=== PATIENT | male | born 1980 | race Caucasian/White ===

== ENCOUNTER 2017-12-14 10:13 | Day surgery (SDC) | payer OTHER, SELFPAY ==
[2017-12-10 08:16] VITALS: BMI 35.6
[2017-12-14] VITALS (15 sets, daily range): BP systolic 105–147; BP diastolic 61–91; PULSE 90–99; RESP 14–18; TEMP 36.6–37.6; O2SAT 87–96; BMI 35.6
--- NOTE | 2017-12-14 | DI.RAD.S_ITS ---
PROCEDURE: XR ANKLE RT MIN 3V INDICATIONS: ORIF RIGHT ANKLE TECHNIQUE: 3 views of the ankle were acquired. COMPARISON: None. FINDINGS: 3 spot fluoroscopic intraoperative images demonstrating postsurgical changes related to placement fixation of the distal fibula, screw fixation of the medial and posterior malleoli as well as tightrope procedure. Dictated by: Jimmy Landeros M.D. on 12/14/2017 at 16:49 Approved by: Jimmy Landeros M.D. on 12/14/2017 at 16:50
[2017-12-14] MEDS: LACTATED RINGERS 1,000 ML 42 ML IV ×2 (10:59→13:18)
--- NOTE | 2017-12-14 11:02 | SUR.PREOP ---
Due to splint on operative leg did use chlorhexidine on operative site.
--- NOTE | 2017-12-14 11:09 | PM.PREOP ---
Pre-operative Note Interval Note Pre-op Check: Yes History & Physical Reviewed by Physician and Yes Exam Performed Changes: No
[2017-12-14] MEDS: MIDAZOLAM 2 MG/2 ML VIAL IV (11:10)
[2017-12-14] MEDS: fentaNYL 100 MCG/2 ML INJ IV (11:15)
[2017-12-14] MEDS: CEFAZOLIN 2 GM/100 ML FROZ.PIGGY IV ×2 (11:29→15:33)
--- NOTE | 2017-12-14 11:31 | SUR.PREOP ---
Block start time [1119] . Monitoring initiated and maintained throughout procedure. Oxygen and medications given per anesthesiologist instructions. Patient remained stable throughout procedure, no adverse reactions noted. Block end time [].1123
[2017-12-14] MEDS: CEFAZOLIN 1 GM VIAL IV ×2 (11:45→15:34)
[2017-12-14] MEDS: BUPIVACAINE 0.5% (PF) VIAL 30 ML INJ (12:22)
--- NOTE | 2017-12-14 12:29 | SUR.OPER ---
Lateral on padded OR bed with abby bag support shoulder to hip, head on pillow, gel axillary roll in place, bottom leg bent with gel pad under knee to foot, gel pad to edge of wei bag, upper leg straight and supported with pillows. Upper arm supported by pillows and secured over bottom arm to padded arm board. Safety belt at hip, tape over blanket lower leg.
--- NOTE | 2017-12-14 14:19 | SUR.OPER ---
At 1410, surgeon requested repositioning: wei bag released, patient repositioned to supine on padded OR bed, head on pillow, arms secured on padded arm boards at <90 degrees abduction, legs uncrossed, safety belt at hip.
[2017-12-14] MEDS: THROMBIN (BOVINE) 5,000 UNIT VIAL 5000 UNIT TOP (15:10)
--- NOTE | 2017-12-14 16:10 | PM.OP.1 ---
Operative Date/Time/Diagnoses Date of procedure: 12/14/17 Time of procedure: 11:35 Pre-op diagnosis: Right trimalleolar ankle fracture ICD 10 S82.851A Post-op diagnosis: same Procedure & Clinicians Procedure: Open reduction internal fixation right trimalleolar fracture with fixation of posterior lip. CPT code 27312 Open reduction internal fixation syndesmosis, right Same procedure as scheduled: Yes Indications: The patient is a 37-year-old otherwise healthy male that sustained a closed right trimalleolar keagan ankle fracture on 12/05/2017 when he fell on stadium stairs at the [facility] football game. He was seen evaluated and splinted in [facility] then travel home for definitive care. He has an unstable displaced right trimalleolar ankle fracture has been indicated for surgical reduction and stabilization to stabilize the joint and limit the development of posttraumatic arthritis or malunion. The patient was counseled regarding the rationale and the risks of surgery. The risks included but are not limited to infection, bleeding, damage to nerves and blood vessels, or tendons, wound dehiscence, malunion, nonunion, persistence of pain, DVT, PE, inability to return to the desired level of function, hardware breakage or prominence, generalized dissatisfaction with the surgical procedure, need for additional procedures, cardiopulmonary complications and . Patient expressed understanding of all the risks and elected to proceed. Patient understands that recovery is variable and may require up to 1 year. The patient also understands that is critical to strictly elevate the operative leg for the 1st 2 weeks after surgery to control swelling and pain. Patient was counseled that no weight will be allowed on the operative extremity for approximately 6 weeks or until the patient is instructed to initiate weight-bearing. Patient expressed full understanding of all these issues and expressed desire to proceed with surgery. Informed consent was obtained and signed in the office. The patient was additionally counseled on cessation of all nicotine products to promote fracture healing and wound healing. DVT prophylaxis with 6 weeks of aspirin will be starting postop day 1 was discussed, the patient has no family or personal history of blood clots or coagulopathies. Surgeon: Lou Mcgregor Click Yes if Unassisted: Yes Anesthesia Type: General, Peripheral nerve block and Local Operative Notes Findings: An unstable distal lateral malleolus fracture was encountered. This had both a distal anterior to proximal posterior oblique component as well as a anterior small butterfly fragment encompassing the origin of a AITFL. Lateral malleolus fracture was stabilized with a 2.7 lag screw anterior to posterior as well as a separate 2.7 mm lag screw with a washer distally in the small anterior pravin fragment. The reduction was neutralized with a 6 hole Arthrex 1/3 tubular locking plate with cortical screws proximal and 1 locking screw distally to avoid prominence. The posterior malleolus fracture was exposed stabilized with a 4.0 mm cannulated lag screw and washer 45mm Medial malleolus fracture will was exposed and reduced with 2 x 4.0 mm cannulated screws 45mm Syndesmosis was stressed under fluoroscopic guidance with the cotton hook test additionally visual inspection through the incision found super physiologic motion this was formally open reduced and pinned with a 2,0mm K-wire and some pressure and then stabilized with an Arthrex suture button--tight rope device. Repeat stress exam following stabilization demonstrated a stable syndesmosis. Closure Type: primary Specimen(s): none sent Implants & Drains: Arthrex 6 hole 1/3 tubular locking plate and cortical screws, 1 distal locking screw Arthrex tight rope 2 (4.0mm) cannulated screws the medial malleolus 1( 4.0mm ) cannulated screw with washer, posterior malleolus 2x 2.7mm synthes mini frag cortical screws + (1) washer Applied: other (Splint) Estimated Blood Loss (mL): 100 Blood products transfused: none Tourniquet time (min): 120 Procedure in detail: The preoperative holding area, the appropriate limb and side of surgery were marked. The patient was then brought to the operating room and placed on the operating table and given anesthetic. Following successful level of anesthesia patient was appropriately padded, position and secured to the table. An SCD was placed on the contralateral extremity. For this procedure the patient was placed initially lateral on the beanbag with a axillary bump. The down leg was well padded with care around the peroneal nerve. A well-padded thigh tourniquet was placed on the surgical leg. Surgical leg was then prepped and draped in the standard sterile fashion after a 3 step prepped with alcohol, chlorhexidine sponge and standard scrub. Formal time-out procedure was completed confirming the patient, side and site of surgery and administration of appropriate preoperative antibiotics which due to the patient's weight at 122 kg with 3 g of Ancef. All were in agreement and appropriate implants were in the room and available. An Esmarch bandage was utilized to exsanguinate the limb and the tourniquet was placed on the thigh to 300 mm of mercury. A posterior lateral incision was made posterior to the fibula over the peroneal tendons. This was carried through the skin and subcutaneous tissue. Peroneal sheath was opened and the tendons were retracted posteriorly. The distal fibula fracture was exposed and cleaned of debris. Fracture was noted to have 2 separate parts with a standard external rotation distal anterior to proximal posterior fracture line as well as a separate anterior butterfly fragment at the area of the anterior syndesmosis. The distal fibula fracture was preliminarily stabilized with K-wires. Next the peroneal tendons were retracted anteriorly and the deep fascia was entered. The FHL was elevated off of the posterior fibula and retracted medially. A Hohmann was placed medially to protect the medial neurovascular bundle. The posterior malleolus fragment was identified and reduced. This was pinned and fluoroscopy was obtained. For the 0.0 mm cannulated lag screw with a washer was utilized to reduce and stablize posterior malleolus fragment from posterior to anterior. This was initially a 50 mm screw however on repeat imaging this appeared to be a little prominent and the left lateral anteriorly therefore this was exchanged for a 45mm screw. Care was taken throughout the posterior dissection to preserve the PITFL attachment on the posterior malleolus fragment. Attention was then returned to the distal fibula and the peroneal tendons were once again retracted posteriorly. The major fragments of the distal fibula fracture were again reduced and a major there brought out to length. This was stabilized with an anterior to posterior 2.7 mm lag screw utilizing the Synthes mini frag set. Previous and temporizing and K-wires were removed and the lag screw was tightened down all the way. Next a neutralization 6 hole 1/3 tubular plate from the Arthrex set was fashioned to the posterior lateral fibula with care to stop short of the distal groove for the peroneal tendons. This was secured to the bone using a BB tacks and this then nonlocking 3.5 screws proximally. 1 locking 3.5 screw was used distally to avoid hardware prominence. The anterior butterfly avulsion (wagstaffe) fragment representing the attachment of the ATFL on the fibula was separately stabilized using a 2.7 mm screw with a washer in a lag fashion. The screw was directed through the distal part of the fragment as this was the least comminuted area. Was attempted to get several passes with a FiberWire around the fragment as well but the mini frag screw and washer provided the most secure fixation. Next the beanbag was let down and the patient was carefully externally rotated to expose the medial malleolus. Standard medial incision was made over the medial malleolus with care taken to avoid the saphenous vein and nerve. The transverse fracture was exposed. The joint was visualized there were no obvious her cartilage lesions. The joint was thoroughly irrigated and the medial malleolus fracture was reduced and provisionally pinned. Next 2 4.0 mm cannulated lag screws were utilized to transfix the medial malleolus fracture. One was placed slightly more anterior than typical in order to be more perpendicular to this particular fracture pattern. This fixation was complete attention was turned to the syndesmosis. The ankle was stressed under fluoroscopy in external rotation and with direct fibular manipulation using a bone clamp and hook. The syndesmosis was noted to have supra-physiologic motion and widening in the anterior to posterior direction on the stress examination. Given this and energy required the fracture, both disrupting the anterior and posterior syndesmosis with a wagstaffe and posterior malleolus fracture- volkmann fragment, additional transsyndesmotic fixation was felt necessary. The syndesmosis was reduced with thumb pressure and a 2.0 mm K-wire was placed across the syndesmosis next the drill for the Arthrex tight rope was positioned just anterior to the plate and all 4 cortices were drilled under fluoroscopic guidance. The suture button device was passed and visualized medial directly on the periosteum. The suture button device was tightened, the transfixing K-wire was moved and final tightening was obtained. Live fluoroscopic and visual examination of the syndesmosis demonstrated stable alignment. Two half hitches were placed and the tails were cut. Stability was confirmed under fluoroscopic guidance and final intraoperative fluoroscopic imaging was obtained including AP, mortise, lateral images. I was quite satisfied with result clinically and radiographically. The tourniquet was released and the wounds were irrigated. We did briefly put the tourniquet back up for 7 min while we got some Gel-Foam and thrombin for the posterior-lateral incision and once this was placed the tourniquet was released and hemostasis achieved. The deep tissue was closed with 2 O Vicryl. Subcutaneous tissue was closed with 4 0 Monocryl and the skin with 3 O nylon sutures in a vertical mattress fashion to daxa the skin edges. Additional simple sutures were also used. 10 cc of 0.5% bupivacaine was placed along the saphenous nerve distribution to supplement the sciatic nerve block was done preoperatively by the anesthesia team. All counts were correct. A sterile bulky Muñoz type dressing and U splint was applied. The patient was woken from anesthesia and taken to the recovery room in good condition. Complications: none Condition: stable Disposition: PACU Plan for aftercare: Patient will be nonweightbearing on the surgical leg. They will start taking 325 mg of aspirin on postop day 1 for DVT prophylaxis x6 weeks. Patient will follow up in 1 week for wound check and then changed to a cast. They will then follow up in 2 weeks later for cast and suture removal. At this time they will go into a boot start early range of motion but will continue to be nonweightbearing. The patient will then follow up in 4 weeks more for x-ray. Will start weight-bearing progressively between 6 and 10 weeks.
[2017-12-14] MEDS: OXYCODONE/ACETAMINOPHEN 5/325 TABLET 1 TAB PO ×2 (16:40→17:08)
--- NOTE | 2017-12-14 16:45 | P.OP_ITS ---
Operative Date/Time/Diagnoses Date of procedure: 12/14/17 Time of procedure: 11:35 Pre-op diagnosis: Right trimalleolar ankle fracture ICD 10 S82.851A Post-op diagnosis: same Procedure & Clinicians Procedure: Open reduction internal fixation right trimalleolar fracture with fixation of posterior lip. CPT code 31402 Open reduction internal fixation syndesmosis, right Same procedure as scheduled: Yes Indications: The patient is a 37-year-old otherwise healthy male that sustained a closed right trimalleolar keagan ankle fracture on 12/05/2017 when he fell on stadium stairs at the [employer] football game. He was seen evaluated and splinted in [facility] then travel home for definitive care. He has an unstable displaced right trimalleolar ankle fracture has been indicated for surgical reduction and stabilization to stabilize the joint and limit the development of posttraumatic arthritis or malunion. The patient was counseled regarding the rationale and the risks of surgery. The risks included but are not limited to infection, bleeding, damage to nerves and blood vessels, or tendons, wound dehiscence, malunion, nonunion, persistence of pain, DVT, PE, inability to return to the desired level of function, hardware breakage or prominence, generalized dissatisfaction with the surgical procedure, need for additional procedures, cardiopulmonary complications and . Patient expressed understanding of all the risks and elected to proceed. Patient understands that recovery is variable and may require up to 1 year. The patient also understands that is critical to strictly elevate the operative leg for the 1st 2 weeks after surgery to control swelling and pain. Patient was counseled that no weight will be allowed on the operative extremity for approximately 6 weeks or until the patient is instructed to initiate weight- bearing. Patient expressed full understanding of all these issues and expressed desire to proceed with surgery. Informed consent was obtained and signed in the office. The patient was additionally counseled on cessation of all nicotine products to promote fracture healing and wound healing. DVT prophylaxis with 6 weeks of aspirin will be starting postop day 1 was discussed , the patient has no family or personal history of blood clots or coagulopathies. Surgeon: Lou Mcgregor Click Yes if Unassisted: Yes Anesthesia Type: General, Peripheral nerve block and Local Operative Notes Findings: An unstable distal lateral malleolus fracture was encountered. This had both a distal anterior to proximal posterior oblique component as well as a anterior small butterfly fragment encompassing the origin of a AITFL. Lateral malleolus fracture was stabilized with a 2.7 lag screw anterior to posterior as well as a separate 2.7 mm lag screw with a washer distally in the small anterior pravin fragment. The reduction was neutralized with a 6 hole Arthrex 1/3 tubular locking plate with cortical screws proximal and 1 locking screw distally to avoid prominence. The posterior malleolus fracture was exposed stabilized with a 4.0 mm cannulated lag screw and washer 45mm Medial malleolus fracture will was exposed and reduced with 2 x 4.0 mm cannulated screws 45mm Syndesmosis was stressed under fluoroscopic guidance with the cotton hook test additionally visual inspection through the incision found super physiologic motion this was formally open reduced and pinned with a 2,0mm K-wire and some pressure and then stabilized with an Arthrex suture button--tight rope device. Repeat stress exam following stabilization demonstrated a stable syndesmosis. Closure Type: primary Specimen(s): none sent Implants & Drains: Arthrex 6 hole 1/3 tubular locking plate and cortical screws , 1 distal locking screw Arthrex tight rope 2 (4.0mm) cannulated screws the medial malleolus 1( 4.0mm ) cannulated screw with washer, posterior malleolus 2x 2.7mm synthes mini frag cortical screws + (1) washer Applied: other (Splint) Estimated Blood Loss (mL): 100 Blood products transfused: none Tourniquet time (min): 120 Procedure in detail: The preoperative holding area, the appropriate limb and side of surgery were marked. The patient was then brought to the operating room and placed on the operating table and given anesthetic. Following successful level of anesthesia patient was appropriately padded, position and secured to the table. An SCD was placed on the contralateral extremity. For this procedure the patient was placed initially lateral on the beanbag with a axillary bump. The down leg was well padded with care around the peroneal nerve. A well-padded thigh tourniquet was placed on the surgical leg. Surgical leg was then prepped and draped in the standard sterile fashion after a 3 step prepped with alcohol, chlorhexidine sponge and standard scrub. Formal time-out procedure was completed confirming the patient, side and site of surgery and administration of appropriate preoperative antibiotics which due to the patient' s weight at 122 kg with 3 g of Ancef. All were in agreement and appropriate implants were in the room and available. An Esmarch bandage was utilized to exsanguinate the limb and the tourniquet was placed on the thigh to 300 mm of mercury. A posterior lateral incision was made posterior to the fibula over the peroneal tendons. This was carried through the skin and subcutaneous tissue. Peroneal sheath was opened and the tendons were retracted posteriorly. The distal fibula fracture was exposed and cleaned of debris. Fracture was noted to have 2 separate parts with a standard external rotation distal anterior to proximal posterior fracture line as well as a separate anterior butterfly fragment at the area of the anterior syndesmosis. The distal fibula fracture was preliminarily stabilized with K- wires. Next the peroneal tendons were retracted anteriorly and the deep fascia was entered. The FHL was elevated off of the posterior fibula and retracted medially. A Hohmann was placed medially to protect the medial neurovascular bundle. The posterior malleolus fragment was identified and reduced. This was pinned and fluoroscopy was obtained. For the 0.0 mm cannulated lag screw with a washer was utilized to reduce and stablize posterior malleolus fragment from posterior to anterior. This was initially a 50 mm screw however on repeat imaging this appeared to be a little prominent and the left lateral anteriorly therefore this was exchanged for a 45mm screw. Care was taken throughout the posterior dissection to preserve the PITFL attachment on the posterior malleolus fragment. Attention was then returned to the distal fibula and the peroneal tendons were once again retracted posteriorly. The major fragments of the distal fibula fracture were again reduced and a major there brought out to length. This was stabilized with an anterior to posterior 2.7 mm lag screw utilizing the Synthes mini frag set. Previous and temporizing and K-wires were removed and the lag screw was tightened down all the way. Next a neutralization 6 hole 1/3 tubular plate from the Arthrex set was fashioned to the posterior lateral fibula with care to stop short of the distal groove for the peroneal tendons. This was secured to the bone using a BB tacks and this then nonlocking 3.5 screws proximally. 1 locking 3.5 screw was used distally to avoid hardware prominence. The anterior butterfly avulsion (wagstaffe) fragment representing the attachment of the ATFL on the fibula was separately stabilized using a 2.7 mm screw with a washer in a lag fashion. The screw was directed through the distal part of the fragment as this was the least comminuted area. Was attempted to get several passes with a FiberWire around the fragment as well but the mini frag screw and washer provided the most secure fixation. Next the beanbag was let down and the patient was carefully externally rotated to expose the medial malleolus. Standard medial incision was made over the medial malleolus with care taken to avoid the saphenous vein and nerve. The transverse fracture was exposed. The joint was visualized there were no obvious her cartilage lesions. The joint was thoroughly irrigated and the medial malleolus fracture was reduced and provisionally pinned. Next 2 4.0 mm cannulated lag screws were utilized to transfix the medial malleolus fracture. One was placed slightly more anterior than typical in order to be more perpendicular to this particular fracture pattern. This fixation was complete attention was turned to the syndesmosis. The ankle was stressed under fluoroscopy in external rotation and with direct fibular manipulation using a bone clamp and hook. The syndesmosis was noted to have supra-physiologic motion and widening in the anterior to posterior direction on the stress examination. Given this and energy required the fracture, both disrupting the anterior and posterior syndesmosis with a wagstaffe and posterior malleolus fracture- volkmann fragment, additional transsyndesmotic fixation was felt necessary. The syndesmosis was reduced with thumb pressure and a 2.0 mm K-wire was placed across the syndesmosis next the drill for the Arthrex tight rope was positioned just anterior to the plate and all 4 cortices were drilled under fluoroscopic guidance. The suture button device was passed and visualized medial directly on the periosteum. The suture button device was tightened, the transfixing K- wire was moved and final tightening was obtained. Live fluoroscopic and visual examination of the syndesmosis demonstrated stable alignment. Two half hitches were placed and the tails were cut. Stability was confirmed under fluoroscopic guidance and final intraoperative fluoroscopic imaging was obtained including AP, mortise, lateral images. I was quite satisfied with result clinically and radiographically. The tourniquet was released and the wounds were irrigated. We did briefly put the tourniquet back up for 7 min while we got some Gel-Foam and thrombin for the posterior- lateral incision and once this was placed the tourniquet was released and hemostasis achieved. The deep tissue was closed with 2 O Vicryl. Subcutaneous tissue was closed with 4 0 Monocryl and the skin with 3 O nylon sutures in a vertical mattress fashion to daxa the skin edges. Additional simple sutures were also used. 10 cc of 0.5% bupivacaine was placed along the saphenous nerve distribution to supplement the sciatic nerve block was done preoperatively by the anesthesia team. All counts were correct. A sterile bulky Muñoz type dressing and U splint was applied. The patient was woken from anesthesia and taken to the recovery room in good condition. Complications: none Condition: stable Disposition: PACU Plan for aftercare: Patient will be nonweightbearing on the surgical leg. They will start taking 325 mg of aspirin on postop day 1 for DVT prophylaxis x6 weeks. Patient will follow up in 1 week for wound check and then changed to a cast. They will then follow up in 2 weeks later for cast and suture removal. At this time they will go into a boot start early range of motion but will continue to be nonweightbearing. The patient will then follow up in 4 weeks more for x-ray. Will start weight-bearing progressively between 6 and 10 weeks.
[2017-12-14] MEDS: ALBUTEROL/IPRATROPIUM 3 ML AMPUL INH (17:26)
--- NOTE | 2017-12-14 17:27 | SUR.PHASEII ---
ptn has had difficulty maintaining SPO@ greater than 90 without supplementary o2. encouraging incentive spirometry q 10 minutes with results of SPO2 92-96 percent on room air but short lived, lung sounds are diminished in all lobes but air movement is present. spoke with Dr geiger at 1715 at bedside and she did not express concern . spoke with Dr villanueva on telephone and duoneb was ordered and administered
--- NOTE | 2017-12-14 18:32 | SUR.PHASEII ---
pt discharged with spo2 92 on room air moving air in all lobes. seen by dr mejia prior to discharge and encouraged to continue incentive spirometry 3-4 times per hour while awake
== END 2017-12-14 18:00 | disposition home or self-care (01) ==
PROVIDERS: Visit Provider Orthopaedic Surgery Foot and Ankle Surgery
PROC: 0SSF04Z Reposition Right Ankle Joint with Internal Fixation Device, Open Approach (ICD-10-PCS; CPT 27823; principal; 2017-12-14 11:30)
DX: S82.851A Displaced trimalleolar fracture of right lower leg, initial encounter for closed fracture (principal); W10.9XXA Fall (on) (from) unspecified stairs and steps, initial encounter; Y92.39 Other specified sports and athletic area as the place of occurrence of the external cause
CPT/HCPCS: 27823; 64445; 64450; 73610; 76001; J0360; J0690; J1100; J1170; J2250; J2405; J2704; J3010